=== PATIENT | male | born 1985 | race Caucasian/White ===

== ENCOUNTER 2020-04-30 14:17 | Emergency (ER) | payer OTHER, SELFPAY ==
[2020-04-30 14:18] VITALS: BP 136/88; PULSE 78; RESP 18; TEMP 36.2; O2SAT 97; BMI 37.5
--- NOTE | 2020-04-30 14:35 | RAD_ITS ---
STUDY: X-RAY CHEST REASON FOR EXAM: Male, 34 years old. sob and chest pains, cough, sore throat and fatigue. TECHNIQUE: Single AP portable view of the chest. COMPARISON: None. FINDINGS: The lungs are clear and expanded. There is no demonstrated pleural abnormality. Normal size heart. Normal mediastinum and nay. Normal visualized pulmonary arteries. Normal visualized aortic arch and descending thoracic aorta. Normal visualized thoracic spine. Normal visualized ribs, clavicles, and shoulders. There is no demonstrated abnormality of the visualized soft tissue structures of the upper abdomen. RAD/Chest 1 View (Portable) IMPRESSION: Normal x-ray examination of the chest. Electronically Signed: Andrade Feng, at 15:16 EDT Tel , Service support ,
--- NOTE | 2020-04-30 14:37 | ED.DCSUM_ITS ---
- ER Visit Summary Date of Service: 04/30/20 Chief Complaint: [Cough and shortness of breath] History of Present Illness: The patient is a 34 M [presents to the emergency department with symptoms that started yesterday. Patient states that he started not feeling well yesterday. Patient states that throughout the night he started feeling worse. He is coughing and describes a low-grade sore throat. Patient states his chest felt somewhat tight but that is improved. He describes headache and body aches as well as mild sore throat from all the coughing. Patient denies any sick contacts. He denies any exposures to anyone with COVID- 19. Patient has no medical history. Patient denies recent travel or surgery.] Physical Examination: [HEENT-PERRLA, EOMI. Cranial nerves II through XII grossly intact. TMs clear. Mucous membranes moist. No adenopathy. Cardiovascular-regular rate and rhythm without murmur or ectopy Lungs-clear to auscultation, chest wall stable without crepitus or subcu emphysema Abdomen-normoactive bowel sounds, soft, nontender, no rebound or rigidity, no peritoneal signs. Extremities-intact ?4, normal range of motion, normal pulses, atraumatic] Test Results: [CBC with differential obtained was unremarkable. Patient did lee ve low lymphocytes at 16.2. Chemistries unremarkable. Chest x-ray showed nothing acute. COVID-19 test ordered and pending.] Emergency Department Course and Treatment: [Patient given albuterol MDI. Patient did have improvement in his breathing with that.] Treatment Plan: [Patient will be treated with prednisone.] Patient given a prescription for Tessalon Perles. Patient to continue with inhaler as needed. Patient advised to self quarantine for 14 days. Disposition: [Discharged home in stable condition] Impression: [Asthmatic bronchitis Viral URI] This note was generated with [employer] dictation software. It may contain incorrect words, spelling, and punctuation that were not noted in review of the chart prior to signing ED Disposition - Plan for ED Patient: Referrals: [facility] Doctor,Out of [Primary Care Provider] -
[2020-04-30 14:44] LABS: Absolute Lymphocyte Count 1.59 X10^3/uL (0.83-4.51); Absolute Neutrophil Count 6.9 X10^3/uL (2.0-7.7); Basophil# 0.05 X10^3/uL; Basophil% 0.5 % (0-1); Eosinophil# 0.45 X10^3/uL; Eosinophils% 4.6 % (0-5); Hematocrit 45.9 % (40-54); Hemoglobin 14.8 g/dL (13.0-16.5); Lymphocyte # 1.59 X10^3/ul (4.0); Lymphocyte % 16.2 % (19-41); Mean Corp Hgb Conc 32.2 g/dL (32-36); Mean Corpuscular Hgb 28.1 pg (27.0-32.0); Mean Corpuscular Volume 87.1 fL (80-94); Mean Platelet Vol. 10.8 fl (6.2-12.0); Monocyte# 0.73 X10^3/uL; Monocyte% 7.5 % (0-10); NRBC Flagged by Analyzer 0 % (0-5); Neutrophil # 6.94 X10^3/uL (2.7-7.7); Neutrophil % 70.9 % (47-70); Platelet Count 303 K/mm3 (150-450); RBC Distribution Width CV 13.6 % (11.6-14.6); RBC Distribution Width SD 42.8 fl (35.1-43.9); Red Blood Count 5.27 M/mm3 (4.6-6.2); White Blood Count 9.8 K/mm3 (4.4-11.0)
[2020-04-30 15:04] LABS: Anion Gap 5 (5-15); BUN 11 mg/dL (7-18); BUN/Creat Ratio 13.2 RATIO (10-20); Calcium,Total 8.8 mg/dL (8.5-10.1); Chloride 104 mmol/L (98-107); Creatinine, Serum 0.83 mg/dL (0.70-1.30); EST Glomerular Filtration Rate 112 mL/min (>60); Est Glom Filt Rate - Afr Amer 136 mL/min (>60); Glucose 90 mg/dL (74-106); Sodium Level 137 mmol/L (136-145)
[2020-04-30 15:21] VITALS: BP 127/68; PULSE 59; RESP 16; O2SAT 98
--- NOTE | 2020-04-30 15:22 | DCINST.ED_ITS ---
ED Disposition - Plan for ED Patient: Instructions: ED Bronchitis Asthmatic, ED Upper Resp Infec No Abx Tx Prescriptions: Prednisone [Deltasone] 20 mg PO BID #10 tab Prescription Printed Referrals: [facility] Doctor,Out of [Primary Care Provider] - 5-7 Days
== END 2020-04-30 15:51 | disposition home or self-care (01) ==
PROVIDERS: Emergency Provider Emergency Medicine
DX: J45.909 Unspecified asthma, uncomplicated (principal); J06.9 Acute upper respiratory infection, unspecified
CPT/HCPCS: 71045; 80048; 85025; 87635; 99284; A4216; U0003

== ENCOUNTER → 2020-06-16 13:34 | Outpatient (CLI) | payer OTHER, SELFPAY ==
[2020-05-23 10:52] VITALS: BMI 38.2
--- NOTE | 2020-06-16 13:38 | RAD_ITS ---
HISTORY: respiratory abnormalities cough ADDITIONAL HISTORY: None provided. COMPARISON: 04/30/2020 EXAMINATION/TECHNIQUE: XR Chest 2 Views Number of images including paperwork: 2 FINDINGS: LUNGS AND PLEURA: No consolidation, mass or pleural effusion. CARDIAC SILHOUETTE: Unremarkable. MEDIASTINUM AND JOVANI: Unremarkable. UPPER ABDOMEN: Unremarkable. SKELETON AND SOFT TISSUES: No acute findings. Degenerative changes. OTHER DEVICES AND HARDWARE: None. RAD/Chest PA and Lateral IMPRESSION: No acute cardiopulmonary abnormality. at 2221 Reported and signed by: Bernadette Powers MD Electronically Signed: Bernadette Powers MD at 22:21 EST Tel , Service support ,
[2020-06-16 15:32] LABS: CRP 5.51 mg/L (0.0-3.0)
[2020-06-16 17:48] LABS: Absolute Lymphocyte Count 2.54 X10^3/uL (0.83-4.51); Absolute Neutrophil Count 7.3 X10^3/uL (2.0-7.7); Basophil# 0.04 X10^3/uL; Basophil% 0.4 % (0-1); Eosinophil# 0.39 X10^3/uL; Eosinophils% 3.6 % (0-5); Hematocrit 46.2 % (40-54); Hemoglobin 14.5 g/dL (13.0-16.5); Lymphocyte # 2.54 X10^3/ul (4.0); Lymphocyte % 23.5 % (19-41); Mean Corp Hgb Conc 31.4 g/dL (32-36); Mean Corpuscular Hgb 28.2 pg (27.0-32.0); Mean Corpuscular Volume 89.9 fL (80-94); Mean Platelet Vol. 11.3 fl (6.2-12.0); Monocyte% 4.6 % (0-10); NRBC Flagged by Analyzer 0 % (0-5); Neutrophil # 7.31 X10^3/uL (2.7-7.7); Neutrophil % 67.6 % (47-70); Platelet Count 332 K/mm3 (150-450); RBC Distribution Width CV 13.9 % (11.6-14.6); RBC Distribution Width SD 45.4 fl (35.1-43.9); Red Blood Count 5.14 M/mm3 (4.6-6.2); White Blood Count 10.8 K/mm3 (4.4-11.0)
[2020-06-16 18:02] LABS: Erythrocyte Sedimentation Rate 27 mm/hr (0-15)
== END ==
PROVIDERS: Referring Provider Internal Medicine Pulmonary Disease; Visit Provider Internal Medicine Pulmonary Disease
DX: R06.00 Dyspnea, unspecified (principal); R05 Cough
CPT/HCPCS: 36415; 71046; 82785; 85025; 85652; 86140; 87385

== ENCOUNTER → 2020-07-27 07:05 | Outpatient (CLI) | payer OTHER, SELFPAY ==
[2020-05-23 10:52] VITALS: BMI 38.2
[2020-07-27 10:17] LABS: Erythrocyte Sedimentation Rate 42 mm/hr (0-20)
== END ==
PROVIDERS: Referring Provider Internal Medicine Pulmonary Disease; Visit Provider Internal Medicine Pulmonary Disease
DX: R06.00 Dyspnea, unspecified (principal); R05 Cough
CPT/HCPCS: 36415; 85652; 86140

== ENCOUNTER → 2020-08-10 15:32 | Outpatient (CLI) | payer OTHER, SELFPAY ==
[2020-05-23 10:52] VITALS: BMI 38.2
[2020-08-10 18:23] LABS: Absolute Lymphocyte Count 1.19 X10^3/uL (0.83-4.51); Absolute Neutrophil Count 8.9 X10^3/uL (2.0-7.7); Basophil# 0.02 X10^3/uL; Basophil% 0.2 % (0-1); Eosinophil# 0.09 X10^3/uL; Eosinophils% 0.8 % (0-5); Hematocrit 44.6 % (40-54); Hemoglobin 14.2 g/dL (13.0-16.5); Lymphocyte # 1.19 X10^3/ul (4.0); Lymphocyte % 11.1 % (19-41); Mean Corp Hgb Conc 31.8 g/dL (32-36); Mean Corpuscular Hgb 28.1 pg (27.0-32.0); Mean Corpuscular Volume 88.3 fL (80-94); Mean Platelet Vol. 11.3 fl (6.2-12.0); Monocyte# 0.45 X10^3/uL; Monocyte% 4.2 % (0-10); NRBC Flagged by Analyzer 0 % (0-5); Neutrophil # 8.94 X10^3/uL (2.7-7.7); Neutrophil % 83.3 % (47-70); Platelet Count 341 K/mm3 (150-450); RBC Distribution Width CV 13.9 % (11.6-14.6); Red Blood Count 5.05 M/mm3 (4.6-6.2); White Blood Count 10.7 K/mm3 (4.4-11.0)
[2020-08-10 18:36] LABS: Vitamin D,25 Hydroxy 22.2 ng/mL
[2020-08-10 18:43] LABS: Rheumatoid Factor < 10.0 IU/mL (<15); Thyroid Stim Hormone (TSH) 0.29 uIU/mL (0.358-3.74)
[2020-08-13 16:10] LABS: Immunoglobulin E 479 IU/mL (6-495)
[2020-08-14 20:07] LABS: Thyroid Peroxidase AB < 9 IU/mL (0-34)
[2020-08-14 20:10] LABS: Anti-Nuclear Antibody Test Negative (.)
== END ==
PROVIDERS: Referring Provider Specialist; Visit Provider Specialist
DX: L50.0 Allergic urticaria (principal); J30.9 Allergic rhinitis, unspecified; J45.50 Severe persistent asthma, uncomplicated; R06.00 Dyspnea, unspecified; J32.9 Chronic sinusitis, unspecified; L50.1 Idiopathic urticaria; T78.09XD Anaphylactic reaction due to other food products, subsequent encounter; E07.9 Disorder of thyroid, unspecified; E55.9 Vitamin D deficiency, unspecified; Z91.038 Other insect allergy status
CPT/HCPCS: 36415; 82306; 82785; 84443; 85025; 86038; 86376; 86431

== ENCOUNTER 2021-04-18 04:34 | Emergency (ER) | payer OTHER, SELFPAY ==
[2021-04-18 04:35] VITALS: BP 137/85; PULSE 76; RESP 19; TEMP 36.1; O2SAT 99; BMI 37.3
--- NOTE | 2021-04-18 04:48 | EX.ED.UPPERE ---
HPI History of Present Illness Chief Complaint: Upper Extremity Injury Informant: patient Narrative Narrative: 35-year-old male sustained a fall yesterday in his garage after his feet became entangled from objects. He notes that he injured the left elbow. He has painful range of motion. He notes his wrist feels fine and the shoulder feels okay. PFSH PFSH Medical History no medical history Home Medications cetirizine 5 mg-pseudoephedrine ER 120 mg tablet,extended release,12hr 1 tab PO BID 05/08/20 [History Last Taken Unknown] Allergy/AdvReac Type Severity Reaction Status Date / Time amoxicillin [From Augmentin] Allergy Rash Verified 04/18/21 04:35 clavulanic acid Allergy Rash Verified 04/18/21 04:35 [From Augmentin] Penicillins Allergy Rash Verified 04/18/21 04:35 Social History (Updated 04/18/21 @ 04:[address] Bruce Maria, DO) Smoking Status: Never smoker substance use type: does not use ROS ROS ED Constitutional Constitutional ED: Denies chills or weight loss Eyes Eyes: Denies change in vision or diplopia ENT ENT ED: Denies ear pain, rhinorrhea or sore throat Cardiovascular Cardiovascular: Denies chest pain, orthopnea, palpitations or racing heartbeat Respiratory/Chest Respiratory/Chest: Denies cough, dyspnea or orthopnea Gastrointestinal Gastrointestinal: Denies abdominal pain, diarrhea, nausea or vomiting Genitourinary Genitourinary ED: Denies dysuria, hematuria or urinary frequency Musculoskeletal Musculoskeletal: Reports other Details: See history of present illness ; Denies arthralgias or myalgias Integumentary Denies abscess or rash Neurologic Neurologic: Denies headache(s) or weakness Psychiatric Psychiatric: Denies anxiety, depression, suicidal ideation or suicidal thoughts Endocrine Endocrinology: Denies polydipsia, polyphagia or polyuria Allergic/Immunologic Allergic/Immunologic ED: Denies mouth swelling, tongue swelling or urticaria EXAM Physical Exam Const Vital Signs: 04/18/21 04:35 Temperature 96.9 F L Temperature Source Temporal Pulse Rate 76 Respiratory Rate 19 H Blood Pressure 137/85 H Blood Pressure Mean 102 Pulse Ox 99 Positive well nourished and well developed General Appearance ED: well developed HEENT Reports normocephalic, head/scalp atraumatic and moist mucous membranes Eyes PERRL and EOMs intact bilaterally Neck no lymphadenopathy, supple and no JVD Resp normal respiratory effort and clear to auscultation bilaterally Cardio regular rate, regular rhythm and no murmurs GI normal to inspection, nondistended, normoactive bowel sounds and non-tender Palpation: soft Back/Spine no CVA tenderness and normal ROM Extremity Extremity Narrative: Tender to palpation about the left elbow. No obvious deformity. Full range of motion although full extension and supination are painful for him. Neurovascular intact distally. General Extremety ED: Negative for edema General Extremity: Negative for edema Neuro oriented x3 and CN's II-XII intact bilaterally Sensorium / Orientation: alert Motor Exam: strength 5/5 throughout Psych mental status grossly normal Mood & Affect: Negative for depressed or tearful Skin no rashes or lesions noted and no wounds Discharge Plan Triage Chief Complaint: Upper Extremity Injury ED Provider: Bruce Maria Dx/Rx/DC Orders Prescriptions: No Action cetirizine-pseudoephedrine [Zyrtec-D] 5-120 mg tablet extended release 12 hr 1 tab PO BID RF: 0 Primary Care Provider: Care Physician,No Primary
--- NOTE | 2021-04-18 04:53 | RAD_ITS ---
EXAM: XR Left Elbow Complete, 3 or More Views CLINICAL INDICATION: 35 years old, Male; injury TECHNIQUE: Frontal, lateral and oblique views of the left elbow. This report was created using [employer] report generation technology. COMPARISON: None. FINDINGS: Bones/joints: Minimally displaced fracture of the lateral radial head. There is no displacement of the anterior or posterior fat pads. Preservation of the joint space. No destructive or sclerotic lesions. Soft tissues: Unremarkable. No soft tissue swelling or gas. No radiopaque foreign body. RAD/Elbow min 3 Views IMPRESSION: Minimally displaced fracture of the lateral radial head. ASSESSMENT: ABNORMAL report - There are abnormal findings in this report which may be related or unrelated to the reason for the exam. Electronically Signed: Esvin Cervantes MD at 6:08 EDT Tel , Service support ,
== END 2021-04-18 05:39 | disposition home or self-care (01) ==
PROVIDERS: Emergency Provider Emergency Medicine
DX: S59.902A Unspecified injury of left elbow, initial encounter (principal); W19.XXXA Unspecified fall, initial encounter
CPT/HCPCS: 73080; 99283

== ENCOUNTER 2023-11-25 08:53 | Emergency (ER) | payer OTHER, SELFPAY ==
[2023-11-25 08:54] VITALS: BP 144/82; PULSE 96; RESP 14; TEMP 36.1; O2SAT 94
--- NOTE | 2023-11-25 09:08 | EX.ED.GENINJ ---
HPI History of Present Illness Chief Complaint: Laceration Detail of Chief Complaint: Left foot laceration Informant: patient Narrative Narrative: Patient presents secondary to laceration on his left foot. He was in the kitchen this morning when he dropped a drinking glass. It hit the counter and shattered. He has a small abrasion to his left clark with a laceration of the distal aspect of the left foot. He has been able to ambulate with no difficulty. He is unsure of his last tetanus update but thinks it has been greater than 8 years. PFSH PFSH Medical History no medical history no medical history Home Medications cetirizine 5 mg-pseudoephedrine ER 120 mg tablet,extended release,12hr (Zyrtec-D) 1 tab PO BID 05/08/20 [History Last Taken Unknown] Allergy/AdvReac Type Severity Reaction Status Date / Time amoxicillin [From Augmentin] Allergy Rash Verified 11/25/23 08:53 clavulanic acid Allergy Rash Verified 11/25/23 08:53 [From Augmentin] Penicillins Allergy Rash Verified 11/25/23 08:53 Social History Smoking Status: Never smoker substance use type: does not use ROS ROS ED Constitutional Constitutional ED: Denies chills or fever(s) Eyes Eyes: Denies discharge from eye(s) ENT ENT ED: Denies discharge from eye(s), rhinorrhea or sore throat Cardiovascular Cardiovascular: Denies chest pain Respiratory/Chest Respiratory/Chest: Denies cough Musculoskeletal Musculoskeletal: Reports extremity pain; Denies back pain Integumentary Reports Abrasions and other Details: Laceration left foot ; Denies rash Neurologic Neurologic: Denies headache(s) or weakness Psychiatric Psychiatric: Denies anxiety or depression Allergic/Immunologic Allergic/Immunologic ED: Denies lip swelling or urticaria EXAM Physical Exam Const Vital Signs: 11/25/23 08:54 Temperature 97.0 F L Temperature Source Temporal Pulse Rate 96 Respiratory Rate 14 Blood Pressure 144/82 H Blood Pressure Mean 102 Pulse Ox 94 Oxygen Delivery Method Room Air Positive well nourished and well developed General Appearance ED: well developed HEENT atraumatic Eyes EOMs intact bilaterally Chest Wall inspection of chest normal and palpation of chest normal Resp normal respiratory effort and clear to auscultation bilaterally Cardio regular rhythm Rate: regular rate GI non-tender Palpation: soft Extremity Extremity Narrative: Superficial abrasion noted over the left anterior clark. There is a 3 cm laceration noted to the distal aspect of the left foot on the dorsal surface. No active bleeding at this time. Good sensation and cap refill distally. Able to wiggle toes without difficulty. Neuro oriented x3 and moves all extremities MDM MDM MDM Narrative Medical decision making narrative: Tetanus update provided. Left foot x-ray will be obtained to evaluate for any potential radiopaque foreign body. Radiography Diagnostic Testing: Clinical Impression(s) from Imaging Studies Foot X-Ray 11/25/23 09:15 IMPRESSION: No acute fracture or dislocation identified in the left foot. Electronically Signed: Vira Wahl MD at 9:32 EDT , Treatment and Re-Evaluation Narrative: No radiopaque foreign body noted on x-ray per my interpretation. Radiology interpretation reviewed. Patient has a 3 cm superficial laceration to the left clark. This area was cleansed and sealed with Dermabond. The 3 cm laceration on the foot is anesthetized with 4 cc of 1% lidocaine. Wound is thoroughly cleansed and irrigated. 5 simple interrupted sutures of 4-0 nylon are placed with good approximation. Antibiotic ointment is placed along with dressing. Wound care is discussed. Patient to have sutures removed in 1 week. Discharge Plan Triage Chief Complaint: Laceration ED Provider: Mirian Krueger Dx/Rx/DC Orders Clinical Impression: Laceration of foot, left Instructions: ED Laceration Extremity, ED Wound Care Prescriptions: No Action cetirizine-pseudoephedrine [Zyrtec-D] 5-120 mg tablet extended release 12 hr 1 tab PO BID Primary Care Provider: NOT,DEFINED Referrals: Esvin Brannon MD [Med Staff - [facility]] - 7 Days for suture removal NOT,DEFINED [Primary Care Provider] - Disposition Disposition: Home, Self Care
--- NOTE | 2023-11-25 09:15 | RAD_ITS ---
HISTORY: injury, laceration, dropped glass on foot at base of fourth and fifth toes. TECHNIQUE: XR Foot Min 3 Views. COMPARISON: None. FINDINGS: BONES : No acute fracture identified. Mineralization unremarkable. JOINTS: No dislocation. Joint spaces maintained. SOFT TISSUES: No radiopaque foreign body identified in the toes. Small calcifications at the medial aspect of the hindfoot. RAD/Foot min 3 Views IMPRESSION: No acute fracture or dislocation identified in the left foot. Electronically Signed: Vira Wahl MD at 9:32 EDT ,
[2023-11-25] MEDS: Lidocaine 1% (20 ml mdv) 20 ML Vial INFILT (09:44)
[2023-11-25] MEDS: Diphth,Pertuss(Acell),Tet Vac 0.5 ML Vial IM (09:44)
[2023-11-25 09:53] VITALS: BP 136/84; PULSE 88; RESP 16; TEMP 36.7; O2SAT 99
== END 2023-11-25 10:04 | disposition home or self-care (01) ==
LOC: ED 09:50
PROVIDERS: Emergency Provider Emergency Medicine; Visit Provider Emergency Medicine
DX: S91.312A Laceration without foreign body, left foot, initial encounter (principal); Z23 Encounter for immunization; X58.XXXA Exposure to other specified factors, initial encounter
CPT/HCPCS: 12002; 73630; 90471; 90715; 99282

== ENCOUNTER → 2023-12-15 | Outpatient (CLI) | payer OTHER, SELFPAY ==
[2023-12-15 11:47] LABS: Bacteria 0 SEEN /hpf (None Seen); Mucous, Urine 0 SEEN /hpf (<or=2+); Red Blood Cells-Urine 0 SEEN /hpf (0-5); Squamous Epithelial Cells - UA 0 SEEN /hpf (0-5); White Blood Cells 0 SEEN /hpf (0-5)
[2023-12-15 15:19] LABS: Color, Urine Yellow (Yellow); Glucose, Dipstick Normal (Normal); Ketone-Dipstick Negative (Negative); Leukocyte Esterase-Dipstick Negative /ul (Negative); Nitrite-Dipstick Negative (Negative); Occult Blood-Urine Negative /ul (Negative); Protein-Dipstick Negative (Negative); Urine Bilirubin Dipstick Negative (Negative); Urine Clarity Clear (Clear); Urine Urobilinogen Normal (Normal); Urine pH 6.5 (5.0 - 8.0)
[2023-12-15 15:23] LABS: Absolute Lymphocyte Count 1.72 X10^3/uL (0.83-4.51); Absolute Neutrophil Count 6.7 X10^3/uL (2.0-7.7); Basophil# 0.03 X10^3/uL; Basophil% 0.3 % (0-1); Eosinophil# 0.26 X10^3/uL; Eosinophils% 2.8 % (0-5); Hematocrit 43.5 % (40-54); Hemoglobin 13.9 g/dL (13.0-16.5); Lymphocyte # 1.72 X10^3/ul (0.83-4.51); Lymphocyte % 18.3 % (19-41); Mean Corpuscular Volume 87.5 fL (80-94); Mean Platelet Vol. 11.2 fl (6.2-12.0); Monocyte# 0.63 X10^3/uL; Monocyte% 6.7 % (0-10); NRBC Flagged by Analyzer 0 % (0-5); Neutrophil # 6.73 X10^3/uL (2.7-7.7); Neutrophil % 71.6 % (47-70); Platelet Count 355 K/mm3 (150-450); RBC Distribution Width CV 13.4 % (11.6-14.6); RBC Distribution Width SD 42.8 fl (35.1-43.9); Red Blood Count 4.97 M/mm3 (4.6-6.2); White Blood Count 9.4 K/mm3 (4.4-11.0)
[2023-12-15 17:00] LABS: ALB/GLOB Ratio 0.8 RATIO (0.9-2.4); AST(SGOT) 37 U/L (15-37); Alanine Aminotransfer ALT/SGPT 85 U/L (16-61); Albumin, Serum 3.7 g/dL (3.2-5.0); Alkaline Phosphatase 53 U/L (45-117); Anion Gap 5 (5-15); BUN 13 mg/dL (7-18); Calcium,Total 9.5 mg/dL (8.5-10.1); Chloride 104 mmol/L (98-107); Cholesterol 146 mg/dL (200); Creatinine, Serum 0.69 mg/dL (0.70-1.30); EST Glomerular Filtration Rate 137 mL/min (>60); Est Glom Filt Rate - Afr Amer 166 mL/min (>60); Globulin 4.5 g/dL (2.2-4.2); Glucose 105 mg/dL (74-106); High Density Lipoprotein 33 mg/dL; Magnesium 2.3 mg/dL (1.6-2.6); Potassium 4.1 mmol/L (3.5-5.1); Protein, Total 8.2 g/dL (6.4-8.2); Sodium Level 136 mmol/L (136-145); Thyroid Stim Hormone (TSH) 0.51 uIU/mL (0.358-3.74); Triglycerides 193 mg/dL; Very Low Density Lipoprotein 39 mg/dL (5-40)
== END | disposition home or self-care (01) ==
LOC: MFPLAB 11:47
PROVIDERS: Visit Provider Family Medicine
DX: R03.0 Elevated blood-pressure reading, without diagnosis of hypertension (principal); E66.9 Obesity, unspecified
CPT/HCPCS: 36415; 80053; 80061; 81001; 83735; 84443; 85025

== ENCOUNTER → 2023-12-29 | Outpatient (CLI) | payer OTHER, SELFPAY ==
[2023-12-29 10:44] LABS: Hemoglobin A1c 5.1 % (3.8-5.6)
[2023-12-29 12:08] LABS: Hepatitis B Surface Antibody Reactive; Hepatitis B Surface Antigen Non-Reactive (Nonreactive); Hepatitis C Antibody Non-Reactive (Nonreactive)
[2024-01-01 15:07] LABS: PROEL- Albumin 3.6 g/dL (2.9-4.4); PROEL- Alpha-1 Globulin 0.2 g/dL (0.0-0.4); PROEL- Alpha-2 Globulin 0.7 g/dL (0.4-1.0); PROEL- Beta Globulin 1.2 g/dL (0.7-1.3); PROEL- Gamma Globulin 1.3 g/dL (0.4-1.8); PROEL- Globulin, Total 3.5 g/dL (2.2-3.9); PROEL- TOTAL PROTEIN 7.1 g/dL (6.0-8.5); PROEL-M-Spike Not Observed g/dL (Not Observed)
== END | disposition home or self-care (01) ==
LOC: MFPLAB 08:35
PROVIDERS: PCP Family Medicine; Visit Provider Family Medicine
DX: R73.09 Other abnormal glucose (principal); R79.89 Other specified abnormal findings of blood chemistry; E88.09 Other disorders of plasma-protein metabolism, not elsewhere classified
CPT/HCPCS: 36415; 83036; 84165; 86706; 86803; 87340

== ENCOUNTER → 2024-10-04 | Outpatient (CLI) | payer OTHER, SELFPAY ==
[2024-10-04 12:42] LABS: Absolute Lymphocyte Count 1.53 X10^3/uL (0.83-4.51); Absolute Neutrophil Count 6.5 X10^3/uL (2.0-7.7); Basophil# 0.03 X10^3/uL; Basophil% 0.3 % (0-1); Eosinophil# 0.29 X10^3/uL; Eosinophils% 3.3 % (0-5); Hematocrit 43.3 % (40-54); Hemoglobin 14.4 g/dL (13.0-16.5); Lymphocyte # 1.53 X10^3/ul (0.83-4.51); Lymphocyte % 17.3 % (19-41); Mean Corp Hgb Conc 33.3 g/dL (32-36); Mean Corpuscular Volume 87.1 fL (80-94); Mean Platelet Vol. 10.6 fl (6.2-12.0); Monocyte# 0.45 X10^3/uL; Monocyte% 5.1 % (0-10); NRBC Flagged by Analyzer 0 % (0-5); Neutrophil # 6.53 X10^3/uL (2.7-7.7); Neutrophil % 73.7 % (47-70); Platelet Count 343 K/mm3 (150-450); RBC Distribution Width CV 13.9 % (11.6-14.6); RBC Distribution Width SD 43.9 fl (35.1-43.9); Red Blood Count 4.97 M/mm3 (4.6-6.2); White Blood Count 8.9 K/mm3 (4.4-11.0)
[2024-10-04 13:44] LABS: ALB/GLOB Ratio 1.3 RATIO (0.9-2.4); AST(SGOT) 40 U/L (<=37); Alanine Aminotransfer ALT/SGPT 68 U/L (<=46); Albumin, Serum 4.4 g/dL (3.5-5.0); Alkaline Phosphatase 56 U/L (40-129); Anion Gap 13 (5-15); BUN 13 mg/dL (4-19); BUN/Creat Ratio 15.9 RATIO (10-20); Calcium,Total 9.8 mg/dL (7.6-11.0); Carbon Dioxide 24.6 mmol/L (21.0-32.0); Chloride 100 mmol/L (98-108); Creatinine, Serum 0.82 mg/dL (0.70-1.20); EST Glomerular Filtration Rate 114 (>60); Globulin 3.5 g/dL (2.2-4.2); Glucose 123 mg/dL (70-99); Potassium 4.3 mmol/L (3.3-5.1); Protein, Total 7.9 g/dL (5.9-8.4); Sodium Level 138 mmol/L (133-145); Thyroid Stim Hormone (TSH) 0.646 uIU/mL (0.300-4.200); Total Bilirubin 0.58 mg/dL (0.00-1.30)
[2024-10-04 14:17] LABS: Cholesterol 161 mg/dL (<=200); High Density Lipoprotein 34 mg/dL; Low Density Lipoprotein Calc. 90 mg/dL; Triglycerides 183 mg/dL; Very Low Density Lipoprotein 37 mg/dL (5-40); cholesterol:hdl ratio screen 4.72
[2024-10-07 11:02] LABS: Hemoglobin A1c 5.3 % (<=5.6)
== END | disposition home or self-care (01) ==
LOC: MFPLAB 10:34
PROVIDERS: PCP Family Medicine; Referring Provider Family Medicine; Visit Provider Family Medicine
DX: R73.09 Other abnormal glucose (principal); E66.9 Obesity, unspecified
CPT/HCPCS: 36415; 80053; 80061; 83036; 84443; 85025